=== PATIENT | male | born 1990 | race American Indian/Alaskan Native ===

== ENCOUNTER 2017-08-31 04:26 | Emergency (ER) | payer SELFPAY ==
[2017-08-31] MEDS ORDERED: NACL 0.9% 1000 ML 1,000 ML IV ONE (04:37)
[2017-08-31 05:05] LABS: Basophils # (Auto) 0.1 K/mm3 (0.0-0.1); Basophils % (Auto) 1.1 % (0.0-1.8); Eosinophils % (Auto) 0.3 % (0.0-4.3); Hematocrit 45.1 % (35.5-45.6); Hemoglobin 15.3 gm/dl (11.8-15.2); Lymphocytes # (Auto) 1.7 K/mm3 (1.2-5.4); Mean Corpuscular HGB Conc 34 % (32-34); Mean Corpuscular Hemoglobin 27 pg (28-32); Mean Corpuscular Volume 80 fl (84-94); Monocytes # (Auto) 0.7 K/mm3 (0.0-0.8); Monocytes % (Auto) 10.1 % (0.0-7.3); Platelet Count 243 K/mm3 (140-440); Red Blood Count 5.62 M/mm3 (3.65-5.03); Red Cell Distribution Width 15.3 % (13.2-15.2)
--- NOTE | 2017-08-31 05:17 | Emergency Department Report ---
ED Palpitations HPI - General Chief Complaint: Arrhythmia/Palpitations Stated Complaint: CHEST PAIN Time Seen by Provider: 08/31/17 04:36 Source: patient, EMS Mode of arrival: Stretcher Limitations: No Limitations - History of Present Illness Initial Comments: 26-year-old male with no significant medical history presents to the hospital with complains of palpitations for the last 2- 3 hours. Positive diaphoresis reported although not now present. He denies chest pain, nausea, vomiting, diarrhea, cocaine abuse, or alcohol abuse. Patient does admit to smoking marijuana. He was noticed to be in SVT with ht 150s to 160s on a monitor prior to arrival. Patient refused IV access and IV medication. Upon arrival he was agreeable to receiving an IV. Patient states that the IV and medications make him nervous. History of palpitations in the past that resolved spontaneously without require medication nor has he been evaluated for palpitations by a v block saw operator. - Related Data Allergies Allergy/AdvReac Type Severity Reaction Status Date / Time No Known Allergies Allergy Unverified 08/31/17 04:46 ED Review of Systems ROS: Stated complaint: CHEST PAIN Other details as noted in HPI Comment: All other systems reviewed and negative ED Past Medical Hx - Past Medical History Previous Medical History?: No - Surgical History Past Surgical History?: No - Social History Smoking Status: Current Every Day Smoker Substance Use Type: Marijuana ED Physical Exam - General Limitations: No Limitations - Other Other exam information: General: No limitations, patient is alert in no acute distress Head exam: Atraumatic, normocephalic Eyes exam: Normal appearance, ENT: Moist mucous membrane, normal oropharynx Neck exam: Normal inspection, full range of motion, no meningismus nontender Respiratory exam: Clear to auscultation bilateral, no wheezes, rales, crackles Cardiovascular: Tachycardia, regular rhythm Abdomen: Soft, nondistended, and nontender, with normal bowel sounds, no rebound, or guarding Extremity: Full range of motion normal inspection no deformity, no calf tenderness or edema Back: Normal Inspection, full range of motion, no tenderness Neurologic: Alert, oriented x3, cranial nerves intact, no motor or sensory deficit Psychiatric: normal affect, normal mood Skin: Warm, dry, intact ED Course Vital Signs 08/31/17 08/31/17 08/31/17 04:22 04:37 04:46 Temperature 98.2 F 98.9 F Pulse Rate 84 95 H Respiratory 15 17 Rate Blood Pressure 134/88 O2 Sat by Pulse 100 96 99 Oximetry 08/31/17 08/31/17 08/31/17 04:51 05:00 05:16 Temperature Pulse Rate 88 88 Respiratory 19 16 18 Rate Blood Pressure 112/62 112/62 O2 Sat by Pulse 100 85 99 Oximetry 08/31/17 05:30 Temperature Pulse Rate 90 Respiratory 22 Rate Blood Pressure 106/66 O2 Sat by Pulse 100 Oximetry - Reevaluation(s) Reevaluation #1: I was at the bedside shortly after patient arrival and while IV was being placed. IV was being placed. Heart rate slowly decreased down below 100 repeat EKG reveals sinus rhythm rate 75 08/31/17 05:16 pt initially refused IV fluids for now agreeable. Refuses to provide a urine sample. - Consultations Consultation #1: 08/31/17 05:[address] Vickers on-call v block saw operator prior to lab results. Informed SVT with spontaneous conversion and plan to follow up in office with cardiology lab/ED workup unremarkable. ED Medical Decision Making - Lab Data Result diagrams: 08/31/17 04:30 08/31/17 04:30 Lab Results 08/31/17 08/31/17 08/31/17 Range/Units 04:30 04:30 04:30 WBC 6.5 (4.5-11.0) K/mm3 RBC 5.62 H (3.65-5.03) M/mm3 Hgb 15.3 H (11.8-15.2) gm/dl Hct 45.1 (35.5-45.6) % MCV 80 L (84-94) fl MCH 27 L (28-32) pg MCHC 34 (32-34) % RDW 15.3 H (13.2-15.2) % Plt Count 243 (140-440) K/mm3 Lymph % (Auto) 26.0 (13.4-35.0) % [place] % (Auto) 10.1 H (0.0-7.3) % Eos % (Auto) 0.3 (0.0-4.3) % Baso % (Auto) 1.1 (0.0-1.8) % Lymph # 1.7 (1.2-5.4) K/mm3 [place] # 0.7 (0.0-0.8) K/mm3 Eos # 0.0 (0.0-0.4) K/mm3 Baso # 0.1 (0.0-0.1) K/mm3 Seg Neutrophils % 62.5 (40.0-70.0) % Seg Neutrophils # 4.1 (1.8-7.7) K/mm3 Sodium 141 (137-145) mmol/L Potassium 3.5 L (3.6-5.0) mmol/L Chloride 98.9 (98-107) mmol/L Carbon Dioxide 24 (22-30) mmol/L Anion Gap 22 mmol/L BUN 9 (9-20) mg/dL Creatinine 1.4 (0.8-1.5) mg/dL Estimated GFR > 60 ml/min BUN/Creatinine Ratio 6 % Glucose 102 H (75-100) mg/dL Calcium 9.2 (8.4-10.2) mg/dL Magnesium 2.10 (1.7-2.3) mg/dL Total Creatine Kinase 237 H (55-170) units/L CK-MB (CK-2) 1.5 (0.0-4.0) ng/mL CK-MB (CK-2) Rel Index 0.6 (0-4) Troponin T < 0.010 (0.00-0.029) ng/mL TSH 2.200 (0.270-4.200) mlU/mL Free T4 1.50 H (0.76-1.46) ng/dL - EKG Data -: EKG Interpreted by Md EKG shows normal: sinus rhythm, axis (qrs 10), QRS complexes (qrsd 104), ST-T waves (no stemi/t inv) Rate: normal (75) - Medical Decision Making Initial EKG provided by EMS test revealed SVT rate 150-160. Patient converted after IV placement with no further SVT. Patient asymptomatic and at baseline. Case discussed with v block saw operator. Last reviewed and unremarkable. Outpatient follow-up will be encouraged. Patient refused to provide a urine drug screen. By mouth potassium ordered for mild hypokalemia - Differential Diagnosis SVT, A. fib, arrhythmia, anxiety Critical Care Time: No Critical care attestation.: If time is entered above; I have spent that time in minutes in the direct care of this critically ill patient, excluding procedure time. ED Disposition Clinical Impression: Palpitations, SVT (supraventricular tachycardia) Disposition: - TO HOME OR SELFCARE Is pt being admited?: No Does the pt Need Aspirin: No Condition: Stable Instructions: Supraventricular Tachycardia (ED) Additional Instructions: Follow up with the primary care clinic provider or doctor of your choice. Follow-up with the v block saw operator for further workup and evaluation of the heart. Return is symptoms worsen as indicated by your discharge instructions Referrals: NORMA VO MD [Primary Care Provider] - 3-5 Days ROSE VICKERS MD [Staff Physician] - 3-[address] [facility] [Provider Group] - 3-5 Days Time of Disposition: 06:02
[2017-08-31 05:29] LABS: BUN/Creatinine Ratio 6; Blood Urea Nitrogen 9 mg/dL (9-20); Calcium 9.2 mg/dL (8.4-10.2); Hemolysis Index 13
[2017-08-31 05:31] LABS: Creatine Kinase MB 1.5 ng/mL (0.0-4.0)
[2017-08-31 05:38] LABS: Free T4 (Free Thyroxine) 1.5 ng/dL (0.76-1.46)
[2017-08-31 05:39] VITALS: BP 106/66
[2017-08-31] MEDS ORDERED: K-DUR PO ONE (05:56)
== END 2017-08-31 06:22 | disposition home or self-care (01) ==
LOC: EDBD → ED 04:26
DX: R00.2 Palpitations (principal); I47.1 Supraventricular tachycardia; F17.200 Nicotine dependence, unspecified, uncomplicated; F12.10 Cannabis abuse, uncomplicated
CPT/HCPCS: 36415; 80048; 82550; 82553; 83735; 84439; 84443; 84484; 85025; 93005; 93010; 99284; J7030